=== PATIENT | female | born 1935 | race Caucasian/White ===

== ENCOUNTER → 2018-06-01 | Outpatient (CLI) | payer OTHER ==
[~2018-06-01] MED LIST: ADV250 IH; DEXL30CA3 PO; DIPH1TAB PO; ESCI20TA PO; ESTR1TAB17 PO; MULT-1203 PO; TOLT4CAP PO
== END | disposition home or self-care (01) ==
LOC: RAH 15:23
PROVIDERS: ATTEND Internal Medicine Critical Care Medicine
DX: J20.9 Acute bronchitis, unspecified (principal)
CPT/HCPCS: 71046

== ENCOUNTER 2018-11-27 16:31 | Observation (INO) | payer OTHER ==
[2018-11-27] VITALS (10 sets, daily range): BP systolic 91–154; BP diastolic 58–91
[~2018-11-27] VITALS: Ht 157.5 cm; Wt 74.0 kg
[~2018-11-27 16:31] MED LIST changes: +APIX5TAB PO; +CETI10TA57 PO; +DARI15TA PO; +DILT120C89 PO; -DIPH1TAB PO; +FURO20TA4 PO; +HYDR-3421 PO; -MULT-1203 PO; +POTA10TA14 PO; +PROP150T28 PO; +SERT50TA12 PO; -TOLT4CAP PO
--- NOTE | 2018-11-27 16:45 | NUR ---
PATIENT ARRIVED TO 219 A DIRECT ADMIT. ASSISTED INTO HOSPITAL GOWN. MONITORS ON AND ALARMS AUDIBLE. BED LOCKED AND LOW, CALL LIGHT IN REACH AND PATIENT ABLE TO DEMONSTRATE USE. AT BEDSIDE. VERBALIZED UNDERSTANDING OF REASON FOR ADMISSION AND PENDING CARDIOVERSION IN AM. WILL MONITOR.
--- NOTE | 2018-11-27 17:00 | NUR ---
DR JENKINS NOTIFIED OF PATIENT'S ARRIVAL, STATES HE WILL BE UP TO SEE HER SOON.
[2018-11-27] MEDS ORDERED: DRON400T2 PO (17:16)
[2018-11-27 17:34] LABS: HEMATOCRIT 36.7 % (36-48); MEAN CORPUSCULAR HEMOGLOBIN 29.8 pg (27.0-33.0); MEAN CORPUSCULAR HGB CONC 33.8 g/dL (32.0-36.0); MEAN CORPUSCULAR VOLUME 88.3 fL (79-99); PLATELET COUNT (AUTO) 223 K/uL (130-400); RED BLOOD CELL COUNT(AUTO) 4.16 MIL/uL (4.00-5.50); RED CELL DISTRIBUTION WIDTH 13.9 % (11.0-15.5); WHITE BLOOD COUNT (AUTO) 6.2 K/uL (4.8-10.8)
[2018-11-27] MEDS ORDERED: POTASSIUM CHLORIDE 10% ELIXIR 20 MEQ/15 ML UDCUP PO PRN ×2 (17:45)
[2018-11-27] MEDS ORDERED: POTASSIUM CHLORIDE 20 MEQ ERTAB PO PRN ×2 (17:45)
[2018-11-27] MEDS ORDERED: POTASSIUM CHLORIDE 20MEQ/100ML 100 ML IV PRN ×2 (17:45)
[2018-11-27] MEDS ORDERED: LIDOCAINE HCL-MPF 1% 2ML VIAL IVP PRN (17:45)
[2018-11-27] MEDS ORDERED: LIDOCAINE HCL-MPF 1% 2ML VIAL IJ PRN (17:45)
[2018-11-27] MEDS ORDERED: DILTIAZEM 125MG/125ML NS IV PRN (17:45)
[2018-11-27 17:49] LABS: BILIRUBIN,TOTAL 0.6 mg/dL (0.2-1.0); CREATININE 0.8 mg/dL (0.5-1.5)
[2018-11-27 18:45] LABS: EOSINOPHILS % (MANUAL) 10 % (1-6); LYMPHOCYTES % (MANUAL) 14 % (22-44); MONOCYTES % (MANUAL) 4 % (2-9); SEGMENTED NEUTROPHILS % 72 % (40-70)
[2018-11-27 18:46] LABS: MAN.DIFF COMMENT-IMPRESSION MANUAL DIFFERENTIAL
[2018-11-27 18:47] LABS: PLATELET MORPHOLOGY COMMENT GIANT PLTS PRESENT
--- NOTE | 2018-11-27 19:27 | NUR ---
ASSESSMENT: REPORT RECEIVED- PATIENT AAOX3, MARIAM 3MM EQUAL, FOLLOWS COMMANDS, MARIAM 3MM EQUAL , EQUAL HAND GRASPS, STRONG X 4, LUNGS WITH EXPIRATORY WHEEZING, FREQUENT COUGH. ON ROOM AIR, O2 SAT 97% . ABDOMEN SOFT , BOWEL SOUNDS ACTIVE. PEDAL PULSES PALPABLE. PATIENT DENIES PAIN. PLAN OF CARE DISCUSSED. CALL NICOLE IN REACH.
[2018-11-27] MEDS: DILTIAZEM 125MG+100 ML NS 125 ML IV PRN (20:13)
[2018-11-27] MEDS: APIXABAN 5 MG TABLET PO SCH (21:16)
[2018-11-27] MEDS: DRONEDARONE HYDROCHLORIDE 400 MG TABLET PO SCH (21:16)
[2018-11-27] MEDS ORDERED: IPRATROPIUM 0.5 MG/2.5 ML INH IH PRN (21:45)
--- NOTE | 2018-11-27 21:57 | NUR ---
PATIENT REQUESTS "AMBIEN" FOR SLEEP. ATARAX PO GIVEN PER ORDER-SEE EMAR. PATIENT WITH WHEEZING ATROVENT NEBS ORDERED.
[2018-11-27] MEDS ORDERED: HYDROXYZINE HCL 25 MG TABLET PO ONE (22:45)
[2018-11-28] VITALS (22 sets, daily range): BP systolic 110–155; BP diastolic 49–96
[2018-11-28] MEDS ORDERED: ONDANSETRON HCL 4 MG/2 ML VIAL IVP PRN (00:45)
[2018-11-28] MEDS ORDERED: HYDRALAZINE HCL 20 MG/ML VIAL IV PRN (00:45)
[2018-11-28] MEDS ORDERED: ACETAMINOPHEN EXTRA STRENGTH 500 MG TABLET PO PRN (00:45)
[2018-11-28] MEDS ORDERED: SODIUM CHLORIDE 0.9% 100 ML IV ONE (04:13)
[2018-11-28] MEDS ORDERED: DILTIAZEM HCL 5 MG/ML 10 ML VIAL IV ONE (04:20)
[2018-11-28] MEDS ORDERED: DILTIAZEM HCL 5 MG/ML 5 ML VIAL IVP ONE (04:21)
[2018-11-28] MEDS: DILTIAZEM 125MG+100 ML NS 125 ML IV PRN (04:48)
[2018-11-28] MEDS ORDERED: SODIUM CHLORIDE 0.9% 1000ML 1,000 ML IV ONE (06:56)
[2018-11-28] MEDS ORDERED: FAMOTIDINE 20MG TAB 20 MG TAB PO SCH (09:00)
[2018-11-28] MEDS: DRONEDARONE HYDROCHLORIDE 400 MG TABLET PO SCH (09:30)
[2018-11-28] MEDS: APIXABAN 5 MG TABLET PO SCH (09:30)
[2018-11-28 09:33] LABS: BASOPHILS % (AUTO) 0.8 % (0.0-5.0); EOSINOPHILS % (AUTO) 10.9 % (0.0-8.0); HEMATOCRIT 35.8 % (36-48); LYMPHOCYTES % (AUTO) 16.5 % (21.0-51.0); MEAN CORPUSCULAR HEMOGLOBIN 29.8 pg (27.0-33.0); MEAN CORPUSCULAR HGB CONC 34.1 g/dL (32.0-36.0); MEAN CORPUSCULAR VOLUME 87.4 fL (79-99); MONOCYTES % (AUTO) 9.3 % (3.0-13.0); NEUTROPHILS % (AUTO) 62.5 % (40.0-77.0); PLATELET COUNT (AUTO) 213 K/uL (130-400); RED CELL DISTRIBUTION WIDTH 13.6 % (11.0-15.5); WHITE BLOOD COUNT (AUTO) 5.4 K/uL (4.8-10.8)
[2018-11-28 09:41] LABS: CREATININE 0.6 mg/dL (0.5-1.5); MAGNESIUM 1.7 mg/dL (1.80-2.40); PHOSPHORUS 3.8 mg/dL (2.5-4.9)
[2018-11-28 09:42] LABS: INR 1.07 (0.85-1.15); PARTIAL THROMBOPLASTIN TIME 31.6 SEC (26.3-35.5); PROTHROMBIN TIME 11.2 SEC (9.6-11.6)
[2018-11-28 10:05] LABS: B-TYPE NATRIURETIC PEPTIDE 241 pg/mL (0-100)
--- NOTE | 2018-11-28 10:20 | NUR ---
DR. CHUNG AT BEDSIDE FOR CARDIOVERSION WITH DR. MASON FOR MAC. TIME OUT COMPLETED. SYNCHRONIZED CARDIOVERSION COMPLETED WITH 200 J. PROCEDURE COMPLETED WITHOUT ANY COMPLICATIONS, PT TOLERATED WELL. PT NOTED SR 64. AWAKE AND RESPONSIVE. PLAN OF CARE DISCUSSED WITH AND PT AND ALL QUESTIONS ANSWERED BY DR. CHUNG. CONTINUE TO MONITOR PT.
[2018-11-28] MEDS ORDERED: MAGNESIUM 2GM PREMIX 50ML 50 ML IV PRN (10:45)
[2018-11-28] MEDS ORDERED: MAGNESIUM 2GM PREMIX 50ML 50 ML IV SCH (10:45)
[2018-11-28] MEDS ORDERED: DILT180T12 PO (10:55)
[2018-11-28] MEDS ORDERED: FUROSEMIDE 10 MG/ML 4ML VIAL IV SCH (12:00)
--- NOTE | 2018-11-28 18:09 | NUR ---
PT DISCHARGED ORDERED. DISCHARGE INSTRUCTIONS GIVEN, ALL QUESTIONS ANSWERED. PIV AND BEDSIDE MONITORING DISCONTINUED.
[2019-01-07] MEDS ORDERED: AMIO200T5 PO (15:49)
== END 2018-11-28 18:10 | disposition home or self-care (01) ==
LOC: EDH 16:31 → 2CH 16:32
PROVIDERS: ADMIT Internal Medicine; ATTEND Internal Medicine
DX: I48.1 Persistent atrial fibrillation (principal); D68.59 Other primary thrombophilia; E78.2 Mixed hyperlipidemia; I11.0 Hypertensive heart disease with heart failure; I50.42 Chronic combined systolic (congestive) and diastolic (congestive) heart failure; I48.92 Unspecified atrial flutter; Z82.49 Family history of ischemic heart disease and other diseases of the circulatory system; Z82.5 Family history of asthma and other chronic lower respiratory diseases; Z79.899 Other long term (current) drug therapy
CPT/HCPCS: 36415 ×2; 71045; 80048; 80053; 83735; 83880; 84100; 85025 ×2; 85610; 85730; 92960; 93005 ×3; 94640; 94664; 96365; 96366; 96367; 96375; 99284; G0378 ×20; J1940; J3475; J3490 ×3; J7030

== ENCOUNTER 2019-01-08 08:37 | Day surgery (SDC) | payer OTHER ==
[2019-01-07 14:40] VITALS: BP 116/67
[2019-01-07 14:51] LABS: BASOPHILS % (AUTO) 0.9 % (0.0-5.0); EOSINOPHILS % (AUTO) 2.2 % (0.0-8.0); HEMATOCRIT 41.1 % (36-48); LYMPHOCYTES % (AUTO) 19.7 % (21.0-51.0); MEAN CORPUSCULAR HEMOGLOBIN 28.4 pg (27.0-33.0); MEAN CORPUSCULAR HGB CONC 33.4 g/dL (32.0-36.0); MEAN CORPUSCULAR VOLUME 85.1 fL (79-99); MONOCYTES % (AUTO) 9.4 % (3.0-13.0); NEUTROPHILS % (AUTO) 67.8 % (40.0-77.0); PLATELET COUNT (AUTO) 261 K/uL (130-400); RED BLOOD CELL COUNT(AUTO) 4.82 MIL/uL (4.00-5.50); RED CELL DISTRIBUTION WIDTH 15.5 % (11.0-15.5); WHITE BLOOD COUNT (AUTO) 7.6 K/uL (4.8-10.8)
[2019-01-07 15:03] LABS: INR 1.05 (0.85-1.15); PARTIAL THROMBOPLASTIN TIME 31.6 SEC (26.3-35.5)
[2019-01-07 15:13] LABS: CREATININE 0.9 mg/dL (0.5-1.5); POTASSIUM 4.6 mmol/L (3.5-5.1)
[2019-01-08] VITALS (8 sets, daily range): BP systolic 115–128; BP diastolic 60–67
[~2019-01-08] VITALS: Ht 157.5 cm; Wt 74.4 kg
[~2019-01-08 08:37] MED LIST changes: -ADV250 IH; +AMIO200T5 PO; -CETI10TA57 PO; -DILT120C89 PO; +DILT180T12 PO; -ESCI20TA PO; -FURO20TA4 PO; -HYDR-3421 PO; -POTA10TA14 PO; -PROP150T28 PO
--- NOTE | 2019-01-08 08:50 | NUR ---
PATIENT ARRIVED PATIENT ARRIVED TO DAY PATIENT ACCOMPANIED BY SPOUSE (RAD). PATIENT AAOX3, RESPIRATIONS UNLABORED, VITAL SIGNS STABLE. PROCEDURE VERIFIED AND CONFIRMED WITH PATIENT. PRE-PROCEDURE INSTRUCTIONS GIVEN TO PATIENT AND SPOUSE,VERBALIZED UNDERSTANDING. PATIENT DENIES ANY PAIN AT THIS TIME. SIDERAILS UPX2, CALL NICOLE IN REACH, BED IN LOWEST POSITION.
[2019-01-08] MEDS ORDERED: PHENYLEPHRINE HCL 10 MG/ML 1ML VIAL IV ONE (10:01)
[2019-01-08] MEDS ORDERED: PROPOFOL 10 MG/ML 20ML VIAL IV ONE (10:01)
--- NOTE | 2019-01-08 12:00 | NUR ---
DISCHARGE DISCHARGE INSTRUCTIONS EXPLAINED TO PATIENT/SPOUSE. EXPLAINED SIGNS/SYMPTOMS TO MONITOR AND REPORT, PATIENT'S SPOUSE VERBALIZED UNDERSTANDING. FOLLOW UP APPOINTMENTS PROVIDED TO PATIENT/SPOUSE. ALL QUESTIONS/CONCERNS ANSWERED. PATIENT TAKEN TO PRIVATE VEHICLE (DRIVEN BY SPOUSE) VIA WHEELCHAIR.
--- NOTE | 2019-01-08 13:13 | NUR ---
CARDIOVERSION CARDIOVERSION WITH ANESTHESIA (DR LEYVA) PERFORMED AT BEDSIDE BY DR CHUNG. TIME OUT DONE AT 1015 SHOCK DELIVERED AT 1021, EXTERNAL SHOCK 200 JOULES FINISH PROCEDURE TIME 1024 RECOVERY TIME STARTED AT 1027 PATIENT TOLERATED WELL WITH NO PAIN OR DISCOMFORT. PATIENT CONVERTED, VS STABLE. DR LEYVA OUT OF ROOM AT 1027. DR CHUNG SPOKE TO PATIENT AND SPOUSE ABOUT PROCEDURE AND PATIENT WILL BE DISCHARGED AFTER PATIENT HAS RECOVERED FROM PROCEDURE.
== END 2019-01-08 12:00 | disposition home or self-care (01) ==
LOC: DAH 08:37
PROVIDERS: ATTEND Internal Medicine Cardiovascular Disease
DX: I48.1 Persistent atrial fibrillation (principal); I11.0 Hypertensive heart disease with heart failure; I50.40 Unspecified combined systolic (congestive) and diastolic (congestive) heart failure; E78.5 Hyperlipidemia, unspecified; J45.909 Unspecified asthma, uncomplicated; F32.9 Major depressive disorder, single episode, unspecified; Z79.01 Long term (current) use of anticoagulants; Z79.899 Other long term (current) drug therapy; Z72.89 Other problems related to lifestyle; Z98.890 Other specified postprocedural states; Z85.828 Personal history of other malignant neoplasm of skin; Z82.49 Family history of ischemic heart disease and other diseases of the circulatory system; Z82.5 Family history of asthma and other chronic lower respiratory diseases
CPT/HCPCS: 36415; 80048; 85025; 85610; 85730; 92960; 93005 ×2; A4606 ×2; J2370; J2704; 99156

== ENCOUNTER 2019-02-15 07:29 | Observation (INO) | payer OTHER ==
[2019-02-13 10:55] VITALS: BP 112/74
[2019-02-13 10:59] LABS: BASOPHILS % (AUTO) 1.1 % (0.0-5.0); EOSINOPHILS % (AUTO) 1.4 % (0.0-8.0); HEMATOCRIT 39.6 % (36-48); LYMPHOCYTES % (AUTO) 18.6 % (21.0-51.0); MEAN CORPUSCULAR HEMOGLOBIN 28.7 pg (27.0-33.0); MEAN CORPUSCULAR HGB CONC 33.8 g/dL (32.0-36.0); MEAN CORPUSCULAR VOLUME 84.9 fL (79-99); MONOCYTES % (AUTO) 10.2 % (3.0-13.0); NEUTROPHILS % (AUTO) 68.7 % (40.0-77.0); PLATELET COUNT (AUTO) 219 K/uL (130-400); RED BLOOD CELL COUNT(AUTO) 4.66 MIL/uL (4.00-5.50); RED CELL DISTRIBUTION WIDTH 16.6 % (11.0-15.5); WHITE BLOOD COUNT (AUTO) 7.4 K/uL (4.8-10.8)
[2019-02-13 11:15] LABS: CREATININE 0.8 mg/dL (0.5-1.5); POTASSIUM 4.6 mmol/L (3.5-5.1)
[2019-02-13 11:27] LABS: INR 1.05 (0.85-1.15); PARTIAL THROMBOPLASTIN TIME 27.7 SEC (26.3-35.5)
--- NOTE | 2019-02-14 10:06 | NUR ---
NOTIFIED DOCTOR SHELDON ABOUT NA OF 130, NEW ORDER TO REPEAT BMP DAY OF PROCEDURE.
[~2019-02-15] VITALS: Ht 157.5 cm; Wt 75.1 kg
[2019-02-15] VITALS (11 sets, daily range): BP systolic 110–130; BP diastolic 58–91
[~2019-02-15 07:29] MED LIST changes: -AMIO200T5 PO; +CEFAZOLIN SODIUM 1 GM VIAL IVP SCH
[2019-02-15] MEDS ORDERED: SODIUM CHLORIDE 0.9% 1000ML 1,000 ML IV ONE (07:35)
[2019-02-15 07:55] LABS: CREATININE 0.8 mg/dL (0.5-1.5); POTASSIUM 4.6 mmol/L (3.5-5.1)
[2019-02-15] MEDS ORDERED: METO-391 PO (08:25)
--- NOTE | 2019-02-15 12:05 | NUR ---
procedure pt taken to clam bed laborer for scheduled procedure , partial dentures removed and given to patients spouse, pt awake and alert in bed,no distress noted.
[2019-02-15] MEDS ORDERED: MEPERIDINE-PF 25 MG/ML SYG ONE ×3 (12:20→14:40)
[2019-02-15] MEDS ORDERED: MIDAZOLAM HCL 1 MG/ML 2ML VIAL ONE ×3 (12:20→14:40)
[2019-02-15] MEDS ORDERED: LIDOCAINE HCL 1% MDV 50ML VIAL ONE (12:20)
[2019-02-15] MEDS ORDERED: IODIXANOL 320 MG/ML 100 ML VIAL ONE (12:20)
[2019-02-15] MEDS ORDERED: BUPIVACAINE/PF 0.25% 30ML VIAL IJ ONE (12:21)
[2019-02-15] MEDS ORDERED: CEFAZOLIN SODIUM 1 GM VIAL ONE (12:21)
[2019-02-15] MEDS ORDERED: FUROSEMIDE 10 MG/ML 2ML VIAL ONE (14:05)
[2019-02-15] MEDS ORDERED: LIDOCAINE HCL 1% 20 ML VIAL ONE (14:22)
[2019-02-15] MEDS ORDERED: ACETAMINOPHEN-CODEINE 300/30MG TAB PO PRN (15:30)
--- NOTE | 2019-02-15 16:00 | NUR ---
POST PROCEDURE RECEIVED PT FROM [employer], IN FLAT POSITION, A&OX3, CALM COOPERATIVE AND DOES NOT APPEAR TO BE IN ANY DISTRESS NOR ANY NEURO DEFICITS PRESENT. PT DENIES PAIN, SOB, NAUSEA. LEFT SHOULDER DRESSING DRY, INTACT AND SECURED WITH ARM SLING, RT GROIN SOFT WITH SOME TENDERNESS BUT NO OOZING OR HEMATOMA PRESENT. DP/PT PULSES PALPABLE. PT ON BEDREST UNTIL 1930, CALL LIGHT WITHIN REACH, FAMILY AT BEDSIDE.
[2019-02-15] MEDS ORDERED: TEMAZEPAM 7.5 MG CAPSULE PO PRN (19:45)
[2019-02-15] MEDS: METOPROLOL TARTRATE 25 MG TAB PO SCH (20:21)
[2019-02-15] MEDS ORDERED: OXYBUTYNIN CHLORIDE 5 MG TABLET PO SCH (21:00)
[2019-02-16 04:09] LABS: BASOPHILS % (AUTO) 0.7 % (0.0-5.0); EOSINOPHILS % (AUTO) 1.4 % (0.0-8.0); HEMATOCRIT 36.6 % (36-48); LYMPHOCYTES % (AUTO) 12.5 % (21.0-51.0); MEAN CORPUSCULAR HEMOGLOBIN 28.9 pg (27.0-33.0); MEAN CORPUSCULAR HGB CONC 34.3 g/dL (32.0-36.0); MEAN CORPUSCULAR VOLUME 84.3 fL (79-99); MONOCYTES % (AUTO) 7.8 % (3.0-13.0); NEUTROPHILS % (AUTO) 77.6 % (40.0-77.0); PLATELET COUNT (AUTO) 189 K/uL (130-400); RED BLOOD CELL COUNT(AUTO) 4.34 MIL/uL (4.00-5.50); RED CELL DISTRIBUTION WIDTH 16.8 % (11.0-15.5)
[2019-02-16 04:16] LABS: CREATININE 0.7 mg/dL (0.5-1.5)
[2019-02-16 04:47] VITALS: BP 130/91
[2019-02-16 07:30] VITALS: BP 124/79
--- NOTE | 2019-02-16 07:45 | NUR ---
ASSESSMENT ENCOUNTERED PT A&OX3, CALM COOPERATIVE AND DOES NOT APPEAR TO BE IN ANY DISTRESS NOR ANY NEURO DEFICITS PRESENT. LEFT SHOULDER DRESSING DRY, INTACT AND SECURED WITH ARM SLING. RT GROIN SOFT NONTENDER WITH NO OOZING OR HEMATOMA PRESENT. PULSES PALPABLE TO ALL EXTREMITIES. PT IS AMBULATORY, GAIT STEADY AND STRONG WITH STAND BY ASSIST, PT DENIES PAIN, DIZZINESS OR DYSPNEA ON EXERTION. PT IS ABLE TO TOLERATE FOODS, FLUIDS AND MEDICATION WITH NO THROAT CLEARING.
[2019-02-16] MEDS: METOPROLOL TARTRATE 25 MG TAB PO SCH (07:59)
[2019-02-16] MEDS ORDERED: PANTOPRAZOLE SODIUM 40 MG TABLET.DR PO SCH (09:00)
[2019-02-16] MEDS ORDERED: ESTRADIOL 0.5 MG TABLET PO SCH (09:00)
--- NOTE | 2019-02-16 12:00 | NUR ---
DISCHARGE INSTRUCTIONS GIVEN, PIV REMOVED AND INTACT, DISCHARGED HOME TO FAMILY VEHICLE VIA WHEELCHAIR.
== END 2019-02-16 11:45 | disposition home or self-care (01) ==
LOC: DAH 07:29 → 2DH 07:30 → DAH 07:30
PROVIDERS: ADMIT Internal Medicine; ATTEND Internal Medicine
DX: I48.1 Persistent atrial fibrillation (principal); I11.0 Hypertensive heart disease with heart failure; I50.42 Chronic combined systolic (congestive) and diastolic (congestive) heart failure; R94.31 Abnormal electrocardiogram [ECG] [EKG]; D68.69 Other thrombophilia; E78.5 Hyperlipidemia, unspecified; I65.23 Occlusion and stenosis of bilateral carotid arteries; J45.909 Unspecified asthma, uncomplicated; Z95.0 Presence of cardiac pacemaker; Z79.899 Other long term (current) drug therapy; Z79.01 Long term (current) use of anticoagulants
CPT/HCPCS: 33207; 33225; 36415 ×3; 71045; 80048 ×3; 85025 ×2; 85610; 85730; 93005; 96374; A4215; A4216; A4221; A4222; A4223 ×3; A4606; A4649 ×2; C1732; C1769; C1894; C1898; C1900; C2621; G0378 ×20; J0690 ×2; J1644; J1940; J2175 ×3; J2250 ×3; J3490 ×2; J7030; Q9967; 93650; 99156; 99157

== ENCOUNTER → 2019-03-29 | Outpatient (CLI) | payer OTHER ==
[~2019-03-29] MED LIST changes: -CEFAZOLIN SODIUM 1 GM VIAL IVP SCH; -DILT180T12 PO; +IOHEXOL-350 50ML VIAL IV ONE; +METO-391 PO
== END | disposition home or self-care (01) ==
LOC: RAH 13:20
PROVIDERS: ATTEND Family Medicine
DX: J44.9 Chronic obstructive pulmonary disease, unspecified (principal); J90 Pleural effusion, not elsewhere classified; J98.11 Atelectasis; M47.815 Spondylosis without myelopathy or radiculopathy, thoracolumbar region
CPT/HCPCS: 71260; Q9967

== ENCOUNTER 2019-05-30 06:06 | Day surgery (SDC) | payer OTHER ==
[2019-05-28 10:56] VITALS: BP 111/75
[2019-05-28 11:11] LABS: BASOPHILS % (AUTO) 0.8 % (0.0-5.0); EOSINOPHILS % (AUTO) 1.8 % (0.0-8.0); HEMATOCRIT 39.4 % (36-48); LYMPHOCYTES % (AUTO) 12.8 % (21.0-51.0); MEAN CORPUSCULAR HEMOGLOBIN 26.5 pg (27.0-33.0); MEAN CORPUSCULAR HGB CONC 31.2 g/dL (32.0-36.0); MEAN CORPUSCULAR VOLUME 84.7 fL (79-99); NEUTROPHILS % (AUTO) 72.7 % (40.0-77.0); PLATELET COUNT (AUTO) 198 K/uL (130-400); RED BLOOD CELL COUNT(AUTO) 4.65 MIL/uL (4.00-5.50); RED CELL DISTRIBUTION WIDTH 15.9 % (11.0-15.5); WHITE BLOOD COUNT (AUTO) 10.6 K/uL (4.8-10.8)
[2019-05-28 11:15] LABS: POTASSIUM 3.9 mmol/L (3.5-5.1)
[2019-05-28 11:44] LABS: INR 1.36 (0.85-1.15); PARTIAL THROMBOPLASTIN TIME 28.3 SEC (26.3-35.5); PROTHROMBIN TIME 14.1 SEC (9.6-11.6)
--- NOTE | 2019-05-28 14:12 | NUR ---
SPOKE WITH DR. SHELDON MOYER/SHORTY MOYER AND SHE IS AWARE OF ABNORMAL LABS NO FURTHER ORDERS FOR NOW.
[~2019-05-30] VITALS: Ht 158.8 cm; Wt 77.2 kg
[2019-05-30] VITALS (9 sets, daily range): BP systolic 110–155; BP diastolic 58–89
[~2019-05-30 06:06] MED LIST changes: -IOHEXOL-350 50ML VIAL IV ONE
[2019-05-30] MEDS ORDERED: SODIUM CHLORIDE 0.9% 1000ML 1,000 ML IV ONE (06:59)
[2019-05-30] MEDS ORDERED: MEPERIDINE-PF 25 MG/ML SYG ONE (07:38)
[2019-05-30] MEDS ORDERED: MIDAZOLAM HCL 1 MG/ML 2ML VIAL ONE (07:38)
[2019-05-30] MEDS ORDERED: HEPARIN SODIUM 1000UNIT/ML 10ML VIAL ONE (07:38)
[2019-05-30] MEDS ORDERED: LIDOCAINE HCL 2% 20ML ONE (07:40)
[2019-05-30] MEDS ORDERED: ISOPROTERENOL HCL 0.2 MG/ML AMP/VIAL/BAG ONE (08:55)
--- NOTE | 2019-05-30 14:01 | NUR ---
PT LEFT VIA WHEELCHAIR IN PVT CAR WITH SPOUSE. D/C INSTRUCTIONS GIVEN TO SPOUSE ALONG WITH F/U APPT. NO COMPLICATION, SITE IS DRY AND INTACT, DP PRESENT BILATERALLY.
== END 2019-05-30 14:00 | disposition home or self-care (01) ==
LOC: DAH 06:06
PROVIDERS: ATTEND Internal Medicine Cardiovascular Disease
DX: I48.21 Permanent atrial fibrillation (principal); I11.0 Hypertensive heart disease with heart failure; I50.20 Unspecified systolic (congestive) heart failure; J45.909 Unspecified asthma, uncomplicated; F32.9 Major depressive disorder, single episode, unspecified; Z79.01 Long term (current) use of anticoagulants; Z79.899 Other long term (current) drug therapy; Z72.89 Other problems related to lifestyle; Z82.49 Family history of ischemic heart disease and other diseases of the circulatory system; Z82.5 Family history of asthma and other chronic lower respiratory diseases; Z95.0 Presence of cardiac pacemaker
CPT/HCPCS: 36415; 80048; 85025; 85610; 85730; 93005; 93650; A4215; A4216; A4221; A4222; A4223 ×3; A4606; A4649 ×2; A4663; C1733; C1894; J1644; J2175; J2250; J3490 ×2; J7030; 93623; 99156; 99157

== ENCOUNTER → 2019-06-12 | Outpatient (CLI) | payer OTHER | END | disposition home or self-care (01) | LOC: RAH 09:56 | PROVIDERS: ATTEND Internal Medicine Cardiovascular Disease | DX: I08.3 Combined rheumatic disorders of mitral, aortic and tricuspid valves (principal); I48.91 Unspecified atrial fibrillation; I42.9 Cardiomyopathy, unspecified; Z95.0 Presence of cardiac pacemaker | CPT/HCPCS: 93306 ==

== ENCOUNTER 2019-06-28 07:22 | Day surgery (SDC) | payer OTHER ==
[~2019-06-28] VITALS: Ht 157.5 cm; Wt 72.6 kg
[~2019-06-28 07:22] MED LIST changes: +SODIUM CHLORIDE 0.9% 1000ML 1,000 ML IV ONE
[2019-06-28 09:05] VITALS: BP 157/82
[2019-06-28] MEDS ORDERED: LEVO25TA54 PO (09:18)
[2019-06-28] MEDS ORDERED: LOSA25TA41 PO (09:18)
[2019-06-28] MEDS ORDERED: CARAFATE (09:18)
[2019-06-28] MEDS ORDERED: PROPOFOL 10 MG/ML 20ML VIAL IV ONE (10:44)
--- NOTE | 2019-06-28 11:10 | NUR ---
PER DR. PURDY PT TO RESUME ELIQUIS IN 2 DAY
--- NOTE | 2019-06-28 11:41 | NUR ---
PT LEFT VIA WHEELCHAIR IN PVT CAR. PT V/S STABLE NO COMPLICATIONS. D/C INSTRUCTIONS GIVEN TO SPOUSE ALONG WITH F/U APPT.
== END 2019-06-28 11:41 | disposition home or self-care (01) ==
LOC: ENDO 07:22 → DAH 07:22 → ENDO 11:41
PROVIDERS: ATTEND Internal Medicine Gastroenterology
DX: R13.10 Dysphagia, unspecified (principal); K29.50 Unspecified chronic gastritis without bleeding; K22.2 Esophageal obstruction; R19.7 Diarrhea, unspecified; I10 Essential (primary) hypertension; I48.20 Chronic atrial fibrillation, unspecified; K21.9 Gastro-esophageal reflux disease without esophagitis; J45.909 Unspecified asthma, uncomplicated; F41.9 Anxiety disorder, unspecified; Z79.01 Long term (current) use of anticoagulants; Z79.899 Other long term (current) drug therapy; Z90.710 Acquired absence of both cervix and uterus; Z98.890 Other specified postprocedural states; Z95.0 Presence of cardiac pacemaker
CPT/HCPCS: 43239; 88305; A4215; A4221; A4222; A4223; A4606; A4620; A4663; J2704; J7030

== ENCOUNTER → 2020-02-17 | Outpatient (CLI) | payer OTHER ==
[~2020-02-17] MED LIST changes: +CARAFATE; +LEVO25TA54 PO; +LOSA25TA41 PO; -SODIUM CHLORIDE 0.9% 1000ML 1,000 ML IV ONE
[2020-02-17 14:56] LABS: CREATININE 0.8 mg/dL (0.5-1.5)
== END | disposition home or self-care (01) ==
LOC: LAB 14:11
PROVIDERS: ATTEND Internal Medicine Cardiovascular Disease
DX: R26.89 Other abnormalities of gait and mobility (principal); R29.6 Repeated falls
CPT/HCPCS: 36415; 82565; 84520

== ENCOUNTER → 2020-02-19 | Outpatient (CLI) | payer OTHER ==
[~2020-02-19] MED LIST changes: +GADODIAMIDE 10 MMOL/20 ML VIAL IV ONE
== END | disposition home or self-care (01) ==
LOC: RAH 08:23
PROVIDERS: ATTEND Internal Medicine Cardiovascular Disease
DX: G31.1 Senile degeneration of brain, not elsewhere classified (principal); I67.82 Cerebral ischemia; R26.89 Other abnormalities of gait and mobility; R29.6 Repeated falls
CPT/HCPCS: 70553; A9579